=== PATIENT | female | born 1980 | race Caucasian/White ===

== ENCOUNTER 2023-08-15 12:06 | Outpatient (RCR) | payer OTHER, SELFPAY | END 2023-08-15 23:59 | disposition home or self-care (01) | LOC: RPT 12:06 | PROVIDERS: ATTENDING PHYSICIAN Student in an Organized Health Care Education/Training Program; PRIMARYCARE PHYSICIAN Nurse Practitioner | DX: M62.89 Other specified disorders of muscle (principal); L90.5 Scar conditions and fibrosis of skin | CPT/HCPCS: 97110; 97112; 97140; 97530 ==

== ENCOUNTER 2023-09-19 08:46 | Outpatient (RCR) | payer OTHER, SELFPAY | END 2023-09-22 07:24 | disposition home or self-care (01) | LOC: RPT 08:46 | PROVIDERS: ATTENDING PHYSICIAN Student in an Organized Health Care Education/Training Program; PRIMARYCARE PHYSICIAN Nurse Practitioner | DX: M62.89 Other specified disorders of muscle (principal); L90.5 Scar conditions and fibrosis of skin; Z73.6 Limitation of activities due to disability | CPT/HCPCS: 97110; 97112; 97530 ==

== ENCOUNTER 2024-05-12 03:17 | Emergency (ER) | payer OTHER, SELFPAY ==
[2024-05-12 03:17] VITALS: BMI 29.1
[2024-05-12 03:19] VITALS: BP 120/84
[2024-05-12 03:42] VITALS: BP 113/86
[2024-05-12 04:00] VITALS: BP 128/84
--- NOTE | 2024-05-12 04:10 | ED.GENMED ---
History of Present Illness
<LONNY Hernández - Last Filed: 05/12/24 04:29>
General
Chief Complaint: Abdominal Pain
Source: patient
Exam Limitations: none
Time Seen by Provider: 05/12/24 03:43
History of Present Illness
History of Present Illness:
Pt is a 43 y/o F with complaints of lower abd pain x5 days. Abdominal pain is rated a 6/10 in severity and is worse with walking. The lower abdominal pain worsened today. There is associated nausea, diarrhea, lightheadedness, and early satiety. Her
last bowel movement was yesterday morning and consisted of diarrhea. The pt noted that her also had diarrhea this past week but no abdominal pain. Denies vomiting, constipation, dysuria, changes in urination, back pain, headache, fever. LMP
was friday.
Past History
<LONNY Hernández - Last Filed: 05/12/24 04:29>
Past History
ED Past Medical History: None and Psychiatric (ADHD)
ED Past Surgical History: None
Social History
Tobacco: Non-smoker
Alcohol: None
Drug: Marijuana
Review of Systems
<LONNY Hernández - Last Filed: 05/12/24 04:29>
Review of Systems
Allergies reviewed?: Yes
Constitutional: Reports no symptoms
EENT: Reports no symptoms
Respiratory: Reports no symptoms
Cardiac: Reports no symptoms
ABD/GI: Reports abdominal pain, nausea and diarrhea
: Reports no symptoms
Musculoskeletal: Reports no symptoms
Skin: Reports no symptoms
Neurological: Reports dizzy
Endocrine: Reports no symptoms
Hematologic/Lymphatic: Reports no symptoms
Psychiatric: Reports no symptoms
Phy Exam
<LONNY Hernández - Last Filed: 05/12/24 04:29>
General Physical Exam
General Presentation: well appearing and no apparent distress
General age: appears stated age
General Skin: warm and dry
General Habitus: normal
General Mental: alert
General Hydration: appears well hydrated
ENT Exam
ENT Exam: EOMI and neck supple
Eye Exam
Eye Exam: PERRL, EOMI, cornea clear and conjunctiva normal
Cardiovascular Exam
Cardiovascular Exam: normal peripheral pulses and tachycardia
Pulmonary Exam
Pulmonary Exam: lungs clear, no respiratory distress, no rales, chest non tender, no crackles, no rhonchi, no stridor, no wheezing and no cough
Gastrointestinal Exam
Gastrointestinal Exam: normal bowel sounds, soft, non distended and cva tenderness (right)
Palpation: left upper quadrant: No tenderness, left lower quadrant: Moderate tenderness, right upper quadrant: No tenderness and right lower quadrant: Moderate tenderness
Neurological Exam
Neurological Exam: alert, oriented x3, CN II-XII intact, no motor deficits, normal reflexs, no sensory deficits and speech normal
Musculoskeletal Exam
Musculoskeletal Exam: full ROM and neuro vasc intact
Skin Exam
Skin Exam: normal color and warm/dry
Psychiatric Exam
Psychiatric Exam: normal mood/affect
Course
<ST EdgarNE - Last Filed: 05/12/24 04:29>
Orders/Labs/Results
Orders:
Orders
05/12/24 04:18
CT Abd/pelvis W Iv Cont Urgent
Comment:
Reason For Exam: marleni lowr abd pain
05/12/24 04:22
Add On- LAB Urgent
Tests Added?: hcg
05/12/24 04:34
Complete Blood Count/With Diff Urgent
Urinalysis Reflex To Culture Urgent
Date Specimen was Collected: 05/12/24
Time Specimen was Collected: 04:23
Urine Microscopic Reflex Cult Urgent
05/12/24 05:01
Comprehensive Metabolic Panel Urgent
HCG, Serum Qualitative Screen Urgent
Comment: REDRAW
Abnormal Lab Results
05/12/24
04:34
Absolute Neuts (auto) 6.7 H 10^3/uL
(1.4-6.5)
Absolute Lymphs (auto) 1.1 L 10^3/uL
(1.2-3.4)
Neutrophils % 76.6 H %
(42.2-75.2)
Lymphocytes % 12.7 L %
(20.5-51.1)
Ur Occult Blood Reflex 3+ A
(Negative)
Leukocyte Esterase Rfl Trace A
(Negative)
Urine RBC 3-6 A /HPF
(0-2)
Urine Bacteria (Reflex) Few A
(Negative)
05/12/24 04:34
05/12/24 05:01
Vital Signs
Initial and Last Documented VS:
Initial Vital Signs
Temp Pulse Resp BP Pulse Ox
98.1 F 96 22 120/84 98
05/12/24 03:19 05/12/24 03:19 05/12/24 03:19 05/12/24 03:19 05/12/24 03:19
Last Documented Vital Signs
Temp Pulse Resp BP Pulse Ox
98.1 F 96 22 128/84 100
05/12/24 03:19 05/12/24 03:19 05/12/24 03:19 05/12/24 04:00 05/12/24 04:00
<David Arreola, DO - Last Filed: 05/12/24 06:29>
Orders/Labs/Results
Orders:
Orders
05/12/24 04:18
CT Abd/pelvis W Iv Cont Urgent
Comment:
Reason For Exam: marleni lowr abd pain
05/12/24 04:22
Add On- LAB Urgent
Tests Added?: hcg
05/12/24 04:34
Complete Blood Count/With Diff Urgent
Urinalysis Reflex To Culture Urgent
Date Specimen was Collected: 05/12/24
Time Specimen was Collected: 04:23
Urine Microscopic Reflex Cult Urgent
05/12/24 05:01
Comprehensive Metabolic Panel Urgent
HCG, Serum Qualitative Screen Urgent
Comment: REDRAW
Abnormal Lab Results
05/12/24
04:34
Absolute Neuts (auto) 6.7 H 10^3/uL
(1.4-6.5)
Absolute Lymphs (auto) 1.1 L 10^3/uL
(1.2-3.4)
Neutrophils % 76.6 H %
(42.2-75.2)
Lymphocytes % 12.7 L %
(20.5-51.1)
Ur Occult Blood Reflex 3+ A
(Negative)
Leukocyte Esterase Rfl Trace A
(Negative)
Urine RBC 3-6 A /HPF
(0-2)
Urine Bacteria (Reflex) Few A
(Negative)
05/12/24 04:34
05/12/24 05:01
Vital Signs
Initial and Last Documented VS:
Initial Vital Signs
Temp Pulse Resp BP Pulse Ox
98.1 F 96 22 120/84 98
05/12/24 03:19 05/12/24 03:19 05/12/24 03:19 05/12/24 03:19 05/12/24 03:19
Last Documented Vital Signs
Temp Pulse Resp BP Pulse Ox
98.1 F 96 22 128/84 100
05/12/24 03:19 05/12/24 03:19 05/12/24 03:19 05/12/24 04:00 05/12/24 04:00
<LONNY Hernández - Last Filed: 05/12/24 04:29>
MDM/Problems Addressed
Differential Diagnosis Includes:
Viral gastroenteritis
Foodborne illness
<LONNY Hernández - Last Filed: 05/12/24 04:29>
*Critical Care Note
Total Time (30-74mins, 75-104mins- exclusive of procedures): Not Applicable
<David Arreola DO - Last Filed: 05/12/24 06:29>
Update Note
Update Note:
CT abdomen and pelvis with IV contrast
IMPRESSION:
Appendix is normal. No bowel obstruction or perforation. No diverticulitis.
Mild inflammation about a few loops of small bowel suggesting enteritis. No cholecystitis or pancreatitis.
No obstructing renal stone. Minimal bladder wall thickening; correlate with urinalysis.
Bilateral benign-appearing ovarian cysts/follicles measuring up to 2.8 cm. Consider ultrasound if clinically indicated.
Small amount of free fluid boluses likely reactive.
Has no current lower pelvic pain. Given that her has similar symptoms I feel that this is viral in nature. Patient to be discharged home. No further testing at this point.
Patient is drinking fluids without issue. She does not request anything for nausea. Patient to be discharged.
ED Attending Note
<LONNY Hernández - Last Filed: 05/12/24 04:29>
-
Portions of this chart may have been created with voice recognition software.� Occasional wrong word or��sound alike� substitutions may have occurred due to the inherent limitations of voice recognition software.
<David Arreola DO - Last Filed: 05/12/24 06:29>
ED Attending Note
Patient seen and examined by attending physician: Yes
I performed the substantive portion of visit, reviewed & personally made and approve the management plan that is documented in note by myself or KEVIN.: Yes
ED Attending Note:
Pleasant 43-year-old female presents with diffuse and lower abdominal pain for the last 5 days. Patient states that pain is 6 out of 10 in severity and exacerbated with movement. She states that her appetite has been suppressed. She did have
several episodes of nonbloody diarrhea. She does report her had similar symptoms of diarrhea earlier in the week. Denies chest pain or shortness of breath. Denies previous abdominal surgeries. Patient was seen in conjunction with the PA
student. I have reviewed and agree with the history and treatment plan presented. On my independent physical exam, patient is awake, alert, and oriented x3 minimal acute distress. Heart is regular rate and rhythm. Lungs clear to auscultation
bilaterally without wheezes rales or rhonchi abdomen is soft with diffuse tenderness to palpation. Good bowel sounds x 4 quadrants. Skin is warm and dry. Patient moves all 4 extremities.
Discharge Plan
Departure
Patient Disposition: Home (Routine Discharge)
Date of Disposition: 05/12/24
Time of Disposition: 06:27
Patient with high blood pressure during this ER visit?: Yes
Condition: Good
Discharge Problem:
Abdominal pain, Enteritis
Instructions: Clear Liquid Diet, Acute Diarrhea, Abdominal Pain
Prescriptions:
No Action
levothyroxine [Synthroid] 75 mcg Tablet
75 mcg PO DAILY
acetaminophen 325 mg Tablet
650 mg PO Q4HPRN PRN (Reason: mild pain) Qty: 30 0RF
ibuprofen 200 mg Tablet
400 mg PO Q6H PRN (Reason: mild pain)
melatonin 3 mg Tablet
3 mg PO HS PRN (Reason: insomina)
dextroamphetamine-amphetamine [Adderall XR] 30 mg Capsule,Extended Release 24hr
30 mg PO DAILY
Referrals:
April Keenan DO [Family Provider] -
Interventions
Interventions:
*Risk Screen - Suicide Last Done: 05/12/24 03:19
*General Assessment Last Done: 05/12/24 03:40
*Neglect/Abuse Screening Last Done: 05/12/24 03:19
*ED COVID-19 Vaccine History Last Done: 05/12/24 03:40
BL-Nknrsw-Qchpsxbrso Assessment Last Done: 05/12/24 03:45
Discharge Date and Time
Print Language: ROMANIAN
[2024-05-12 04:45] LABS: % Basophils 0.5 % (0-2); % Eosinophils 2.7 % (0-6); % Immature Granulocytes 0.2 % (0-0.5); % Lymphocytes 12.7 % (20.5-51.1); % Monocytes 7.3 % (1.7-9.3); % Neutrophils 76.6 % (42.2-75.2); Absolute Eosinophils 0.2 10^3/uL (0-0.7); Absolute Lymphocytes 1.1 10^3/uL (1.2-3.4); Absolute Monocytes 0.6 10^3/uL (0.1-0.6); Absolute Neutrophils 6.7 10^3/uL (1.4-6.5); Hematocrit 37.9 % (37.0-47.0); Hemoglobin 13.2 g/dL (12.0-16.0); Mean Corp Hgb Conc. 34.8 g/dL (33.0-37.0); Mean Corpuscular Hgb 28.8 pg (27.0-31.0); Mean Corpuscular Volume 82.6 fL (81.0-99.0); Mean Platelet Volume 8.7 fL (7.4-10.4); Nucleated Red Blood Cells % 0 %; Platelet Count 268 10^3/uL (130-400); Red Blood Cell Count 4.59 10^6/uL (4.20-5.40); Red Cell Dist. Width 12.8 % (11.5-14.5); White Blood Cell Count 8.8 10^3/uL (4.8-10.8)
[2024-05-12 04:48] LABS: Urine Albumin Negative (Neg - Trace); Urine Bilirubin Negative (Negative); Urine Character Clear (Clear); Urine Color Yellow; Urine Glucose Negative (Negative); Urine Ketone Negative (Negative); Urine Leukocyte Trace (Negative); Urine Nitrite Negative (Negative); Urine Occult Blood 3+ (Negative); Urine Urobilinogen Negative (Neg - 1+); Urine pH 6.5 (5.0-9.0)
[2024-05-12 05:00] VITALS: BP 131/76
[2024-05-12 05:18] LABS: Urine Bacteria Few (Negative)
[2024-05-12 05:26] LABS: HCG, Serum Qualitative Screen Negative
[2024-05-12 05:27] LABS: ALT (SGPT) < 10 U/L (0-35); AST (SGOT) 20 U/L (14-36); Albumin 4.2 g/dl (3.5-5.0); Alkaline Phosphatase 81 U/L (38-126); Blood Urea Nitrogen 12 mg/dl (7-17); Calcium 9.4 mg/dl (8.4-10.2); Carbon Dioxide 25 mmol/L (22-30); Chloride 106 mmol/L (98-107); Estimated Creatinine Clearance 100 ml/min; Glucose 98 mg/dl (70-99); Potassium 3.9 mmol/L (3.5-5.1); Sodium 140 mmol/L (135-145); Total Bilirubin 0.7 mg/dl (0.2-1.3); Total Protein 6.7 g/dl (6.3-8.2); eGFR > 60.00
[2024-05-12 06:02] VITALS: BP 121/74
== END 2024-05-12 06:39 | disposition home or self-care (01) ==
LOC: EMR 03:17
PROVIDERS: EMERGENCY PHYSICIAN Student in an Organized Health Care Education/Training Program; FAMILY PHYSICIAN Family Medicine
DX: R10.30 Lower abdominal pain, unspecified (principal); R11.0 Nausea; R42 Dizziness and giddiness; R19.7 Diarrhea, unspecified; R68.81 Early satiety; K52.9 Noninfective gastroenteritis and colitis, unspecified; R03.0 Elevated blood-pressure reading, without diagnosis of hypertension; N83.202 Unspecified ovarian cyst, left side; N83.201 Unspecified ovarian cyst, right side; F90.9 Attention-deficit hyperactivity disorder, unspecified type
CPT/HCPCS: 99284; 74177; 80053; 81003; 81015; 84703; 85025; Q9967

== ENCOUNTER → 2024-10-20 10:20 | Outpatient (REF) | payer OTHER, SELFPAY | LOC: HWWDC 10:20 | PROVIDERS: ATTENDING PHYSICIAN Student in an Organized Health Care Education/Training Program | DX: Z12.31 Encounter for screening mammogram for malignant neoplasm of breast (principal) | CPT/HCPCS: 77063; 77067 ==

== ENCOUNTER → 2025-05-13 11:04 | Outpatient (REF) | payer OTHER, SELFPAY | LOC: WDC 11:04 | PROVIDERS: ATTENDING PHYSICIAN Student in an Organized Health Care Education/Training Program | DX: R92.343 Mammographic extreme density, bilateral breasts (principal) | CPT/HCPCS: 76641 ==